=== PATIENT | female | born 1960 | race Caucasian/White ===

== ENCOUNTER 2024-03-05 18:00 | Outpatient (CLI) | payer BC, SELFPAY ==
[2024-03-05 17:53] LABS: Basophils # 0.2 K/mm3 (0-0.2); Basophils % 1.1 % (0.1-2.0); Eosinophils # 0.3 K/mm3 (0.0-0.4); Eosinophils % 1.5 % (0.1-12.0); Hematocrit 45.4 % (37.0-47.0); Hemoglobin 14.6 g/dL (12.2-16.2); Lymphocytes % 17.2 % (10-50); Mean Corpuscular HGB Conc 32.1 g/dL (31.8-35.4); Mean Corpuscular Hemoglobin 28.7 pg (27.0-31.2); Mean Corpuscular Volume 89.6 fl (81-99); Mean Platelet Volume 8.2 fl (7.4-10.4); Monocytes # 0.7 K/mm3 (0.1-1.0); Monocytes % 4.2 % (1.7-9.3); Neutrophils # 13.2 K/mm3 (1.8-7.8); Platelet Count 538 K/mm3 (142-424); Red Blood Count 5.07 M/mm3 (4.20-5.40); Red Cell Distribution Width 14.8 % (11.5-17.5); White Blood Count 17.3 K/mm3 (4.8-10.8)
[2024-03-05 17:56] LABS: MANUAL DIFFERENTIAL MANUAL DIFFERENTIAL (MANUAL DIFF)
[2024-03-05 18:10] LABS: Hemoglobin A1C 6.3 % (4.0-6.0)
[2024-03-05 19:19] LABS: Alanine Aminotransferase 25 U/L (12-78); Albumin Level 4.3 g/dl (3.5-5.0); Albumin/Globulin Ratio 1.3 (1.1-1.8); Alkaline Phosphatase 85 U/L (38-126); Anion Gap 15.5 mEq/L (5-15); Aspartate Amino Transferase 29 U/L (14-36); Bilirubin,Total 0.4 mg/dl (0.2-1.3); Blood Urea Nitrogen 11 mg/dl (7-17); Calcium 9.7 mg/dl (8.4-10.2); Carbon Dioxide 32 mmol/L (22.0-30.0); Chloride 99 mmol/L (98-107); Chol/HDL Ratio 5.7 (1-3.5); Cholesterol 233 mg/dl (140-200); Estimated Glomerular Filt Rate 101 ml/min (>60); GFR (African American) 122 ML/MIN (>60); Globulin 3.2 g/dL (1.3-3.2); Glucose 92 mg/dl (74-100); HDL Cholesterol 41 mg/dl (40-60); Potassium 4.5 mmoL/L (3.5-5.1); Sodium 142 mmol/L (136-145); Total Protein,Serum 7.5 g/dl (6.3-8.2); Triglycerides 183 mg/dl (30-150); VLDL Cholesterol 37 mg/dL (0-40)
[2024-03-05 19:30] LABS: Direct LDL Cholesterol 147.66 mg/dL (100-129)
[2024-03-05 19:32] LABS: 25-OH Vitamin D, Total < 12.8 ng/mL (30-100)
[2024-03-05 19:48] LABS: Thyroid Stimulating Hormone 1.89 uIU/mL (0.465-4.68)
[2024-03-05 21:08] LABS: Eosinophils % 1 % (0-3); Lymphocytes % 15 % (10-50); Monocytes % 2 % (2-9); Neutrophils % 80 % (42-76); RBC Morphology Normal; Total Cells Counted 100
[2024-03-05 21:09] LABS: Platelet Estimate Slight Increase
[2024-03-06 11:46] LABS: HIV (1&2) Antibody Rapid NON REACTIVE
[2024-03-07 07:06] LABS: HCV Ab Non Reactive (Non Reactive)
== END 2024-03-05 23:59 | disposition home or self-care (01) ==
LOC: LAB.DROPOF 03-06 08:54
PROVIDERS: PCP Student in an Organized Health Care Education/Training Program; Visit Provider Student in an Organized Health Care Education/Training Program
DX: Z13.29 Encounter for screening for other suspected endocrine disorder (principal); Z13.1 Encounter for screening for diabetes mellitus; Z11.4 Encounter for screening for human immunodeficiency virus [HIV]; Z13.220 Encounter for screening for lipoid disorders; Z13.21 Encounter for screening for nutritional disorder; Z11.59 Encounter for screening for other viral diseases; R21 Rash and other nonspecific skin eruption; E55.9 Vitamin D deficiency, unspecified; Z68.35 Body mass index [BMI] 35.0-35.9, adult; E66.9 Obesity, unspecified
CPT/HCPCS: 80053; 80061; 82306; 83036; 84443; 85007; 85025; 85027

== ENCOUNTER 2024-03-22 09:56 | Outpatient (CLI) | payer BC, SELFPAY ==
[2024-03-22 19:13] LABS: Basophils # 0.1 K/mm3 (0-0.2); Basophils % 0.6 % (0.1-2.0); Eosinophils # 0.2 K/mm3 (0.0-0.4); Eosinophils % 1.1 % (0.1-12.0); Hematocrit 41.2 % (37.0-47.0); Hemoglobin 13.6 g/dL (12.2-16.2); Lymphocytes # 2.7 K/mm3 (0.7-4.5); Lymphocytes % 16.7 % (10-50); Mean Corpuscular Hemoglobin 29.6 pg (27.0-31.2); Mean Corpuscular Volume 89.9 fl (81-99); Mean Platelet Volume 8.1 fl (7.4-10.4); Monocytes # 0.8 K/mm3 (0.1-1.0); Neutrophils # 12.3 K/mm3 (1.8-7.8); Neutrophils % 76.5 % (37.0-80.0); Platelet Count 492 K/mm3 (142-424); Red Blood Count 4.58 M/mm3 (4.20-5.40); Red Cell Distribution Width 14.4 % (11.5-17.5); White Blood Count 16.1 K/mm3 (4.8-10.8)
[2024-03-22 19:26] LABS: MANUAL DIFFERENTIAL MANUAL DIFFERENTIAL (MANUAL DIFF)
[2024-03-22 19:45] LABS: Eosinophils % 1 % (0-3); Lymphocytes % 21 % (10-50); Monocytes % 7 % (2-9); Neutrophils % 70 % (42-76); Total Cells Counted 100
[2024-03-22 19:47] LABS: Hypochromasia 1+; Platelet Estimate Normal; RBC Morphology Normal
[2024-03-24 18:42] LABS: Peripheral Smear Review Scanned Result
== END 2024-03-22 23:59 | disposition home or self-care (01) ==
LOC: LAB.DROPOF 03-23 09:57
PROVIDERS: PCP Student in an Organized Health Care Education/Training Program; Visit Provider Student in an Organized Health Care Education/Training Program
DX: D72.829 Elevated white blood cell count, unspecified (principal); Z12.11 Encounter for screening for malignant neoplasm of colon; Z12.39 Encounter for other screening for malignant neoplasm of breast
CPT/HCPCS: 85007; 85025; 85027

== ENCOUNTER 2024-03-28 14:46 | Outpatient (CLI) | payer BC, SELFPAY ==
--- NOTE | 2024-03-28 15:03 | MM_ITS ---
PROCEDURE INFORMATION: Exam: MG Bilateral Screening 3D Mammography Exam date and time: 03/28/2024 2:49 PM Age: 64 years old Clinical indication: Screening examinationmammogram TECHNIQUE: Imaging protocol: Bilateral Screening tomosynthesis and 2D mammography including computer-aided detection (CAD) when performed. COMPARISON: No relevant prior studies available. FINDINGS: MAMMOGRAPHY: Breast composition: There are scattered areas of fibroglandular density. Mass: None. Architectural distortion: None. Calcifications: No suspicious calcifications. Asymmetric density: None. Skin thickening: None. Axillary adenopathy: None. IMPRESSION: No mammographic evidence of malignancy. Annual screening is recommended unless otherwise clinically indicated. ASSESSMENT: BI-RADS Category 1: Negative
== END 2024-03-28 23:59 | disposition home or self-care (01) ==
LOC: RAD 14:52
PROVIDERS: PCP Student in an Organized Health Care Education/Training Program; Visit Provider Student in an Organized Health Care Education/Training Program
DX: Z12.31 Encounter for screening mammogram for malignant neoplasm of breast (principal)
CPT/HCPCS: 77063; 77067

== ENCOUNTER 2024-05-16 09:49 | Day surgery (SDC) | payer BC, SELFPAY ==
[2024-05-09 14:11] VITALS: BMI 36.0
[2024-05-16] VITALS (7 sets, daily range): BP systolic 114–175; BP diastolic 67–98; PULSE 81–771; RESP 16–18; TEMP 36.6–37.1; O2SAT 93–100
[2024-05-16] MEDS: LACTATED RINGERS 1000ML 1,000 ML 100 ML IV (10:12)
--- NOTE | 2024-05-16 10:57 | EXP.ANES.CKL ---
[facility] Disclaimer: The information contained in this section may have been updated after the patient was seen, as this information can be updated by other users. Medical History Sleep apnea Hyperlipidemia Hypertension Obesity Surgical History Hx of cholecystectomy H/O arthroscopic knee surgery Family History Other Family history of cancer Family history of stroke Social History Smoking Status: Never smoker alcohol intake: never substance use type: denies use current occupational status: employed Travel in the last 8 weeks: None household members: family housing: house [facility] Anesthesia Checklist Patient Identification Patient Identification: Arm Band and Verbal (Name & ) Structural Data Admitted From: Home Planned Operative Procedure/s: Colonoscopy Consent for Planned Operative Procedure(s) Verified: Yes Verified Documents: Surgical Consent and History and Physical NPO Status Verified Time NPO: 00:00 Additional verifications Anesthesia Reactions: No Airway Assessment Mallampati Score:: Class III C-Spine Mobility Assessed: Yes TMJ Mobility Assessed: Yes Dentition: Good Dentition Neurological Assessment Level of Consciousness: Awake Hx Seizures: No Numbness or tingling in extremities: No Anesthesia Plan Anesthesia Risk discussed: Yes Anesthesia Plan: Verified ASA Class: III Anesthesia Type: MAC
--- NOTE | 2024-05-16 13:32 | HMH.SCOPE ---
Procedure: Date: 05/16/24 Patient Date of :: 1960 Procedure Performed:: Colonoscopy Indications:: The patient is a 64-year-old who presents for colonoscopy for having a positive Cologuard test Performing Provider:: Cisco Puente MD Referring Provider:: Delicia Richard PA-C Sedation:: See RN records Procedure:: After placing the patient in the left lateral decubitus position, the colonoscopy was gently inserted into the rectum and under direct visualization advanced to the cecum which was identified by transillumination in the right lower quadrant, identification of the ileocecal valve, appendiceal orifice, and cecal strap. Color, texture, mucosa, and anatomy of the colon were carefully examined with the scope. Findings:: There was a flat polyp approximately 10 mm in size in the cecum. The polyp was completely removed by snare polypectomy. Polyp was retrieved. There was a sessile polyp measuring 4 mm in size in the ascending colon. The polyp was removed by snare polypectomy. The polyp was retrieved. There was a sessile polyp measuring 4 to 5 mm in size in the descending colon. The polyp was removed by snare polypectomy. The polyp was retrieved. There was a pedunculated polyp less than 10 mm in size in the sigmoid colon. The polyp was removed by hot snare polypectomy. The polyp was retrieved. Retroflexion view of the rectum was normal. The colonoscopy was technically difficult secondary to the patient's body habitus and the patient coughing episodes during the procedure. There were also colon spasms. Impression: Polyp of cecum Polyp of ascending colon All of descending colon Polyp sigmoid colon Recommendations:: Await pathology result Repeat colonoscopy in 3 years Complications:: None Estimated blood obtained (mL): 0 Colonoscopy Component Colonoscopy Component Was a colonoscopy performed during today's procedure?: Yes Recommended follow up colonoscopy of at least 10 years?: Yes
--- NOTE | 2024-05-16 13:44 | EXP.ANES.I ---
[facility] Anesthesia Record Part I Anesthesia Record I Intake, IV Amount: 400 Hydration: Adequate Estimated blood loss (mL): 1 Urine output (mL): 0 Blood Products used (#): none Blood Pressure: 114/67 SaO2: 96 Pulse Rate: 82 Airway Patency: Patent Respiratory Rate: 16 Temperature: 98.8 F Patient is:: Awake (Talking) and Stable Stable to PACU at:: 13:44
[2024-05-18 06:37] LABS: POC Glucose,Bedside 84 (70-110)
== END 2024-05-16 14:09 | disposition home or self-care (01) ==
PROVIDERS: PCP Student in an Organized Health Care Education/Training Program; Visit Provider Internal Medicine
PROC: (CPT 45385; principal; 2024-05-16 12:00)
DX: R19.5 Other fecal abnormalities (principal); Z12.11 Encounter for screening for malignant neoplasm of colon; K63.5 Polyp of colon; D12.2 Benign neoplasm of ascending colon; D12.4 Benign neoplasm of descending colon
CPT/HCPCS: 45385; 82962; J2704; J7120

== ENCOUNTER 2024-06-18 09:18 | Outpatient (CLI) | payer BC, SELFPAY ==
[2024-06-15 18:39] LABS: Basophils # 0.1 K/mm3 (0-0.2); Basophils % 0.5 % (0.1-2.0); Eosinophils # 0.3 K/mm3 (0.0-0.4); Eosinophils % 1.7 % (0.1-12.0); Hematocrit 39.2 % (37.0-47.0); Lymphocytes # 2.8 K/mm3 (0.7-4.5); Lymphocytes % 18.7 % (10-50); Mean Corpuscular HGB Conc 30.6 g/dL (31.8-35.4); Mean Corpuscular Hemoglobin 28.1 pg (27.0-31.2); Mean Corpuscular Volume 91.6 fl (81-99); Mean Platelet Volume 7.6 fl (7.4-10.4); Monocytes # 0.7 K/mm3 (0.1-1.0); Monocytes % 4.7 % (1.7-9.3); Neutrophils # 11.1 K/mm3 (1.8-7.8); Neutrophils % 74.4 % (37.0-80.0); Platelet Count 557 K/mm3 (142-424); Red Blood Count 4.28 M/mm3 (4.20-5.40); Red Cell Distribution Width 14.5 % (11.5-17.5); White Blood Count 14.9 K/mm3 (4.8-10.8)
[2024-06-15 18:54] LABS: Alanine Aminotransferase 23 U/L (12-78); Albumin/Globulin Ratio 1.4 (1.1-1.8); Alkaline Phosphatase 67 U/L (38-126); Anion Gap 10.4 mEq/L (5-15); Aspartate Amino Transferase 31 U/L (14-36); Bilirubin,Total 0.4 mg/dl (0.2-1.3); Blood Urea Nitrogen 11 mg/dl (7-17); Calcium 9.7 mg/dl (8.4-10.2); Carbon Dioxide 30 mmol/L (22.0-30.0); Chloride 102 mmol/L (98-107); Chol/HDL Ratio 4.6 (1-3.5); Cholesterol 205 mg/dl (140-200); Estimated Glomerular Filt Rate 101 ml/min (>60); GFR (African American) 122 ML/MIN (>60); Globulin 2.9 g/dL (1.3-3.2); Glucose 105 mg/dl (74-100); HDL Cholesterol 45 mg/dl (40-60); Potassium 4.4 mmoL/L (3.5-5.1); Sodium 138 mmol/L (136-145); Total Protein,Serum 6.9 g/dl (6.3-8.2); Triglycerides 135 mg/dl (30-150); VLDL Cholesterol 27 mg/dL (0-40)
[2024-06-15 19:06] LABS: Direct LDL Cholesterol 138.73 mg/dL (100-129)
[2024-06-15 19:12] LABS: 25-OH Vitamin D, Total 55.2 ng/mL (30-100)
[2024-06-15 22:17] LABS: Hemoglobin A1C 6.1 % (4.0-6.0)
== END 2024-06-18 23:59 | disposition home or self-care (01) ==
LOC: LAB.DROPOF 09:19
PROVIDERS: PCP Student in an Organized Health Care Education/Training Program; Visit Provider Student in an Organized Health Care Education/Training Program
DX: I10 Essential (primary) hypertension (principal); R73.09 Other abnormal glucose; E55.9 Vitamin D deficiency, unspecified; E78.2 Mixed hyperlipidemia
CPT/HCPCS: 80053; 80061; 82306; 83036; 85025